=== PATIENT | male | born 1995 | race Asian ===

== ENCOUNTER → 2020-07-20 | Outpatient (CLI) | payer OTHER ==
[2020-07-20 20:47] LABS: HEPATITIS C ANTIBODY C Non-Reactive (Non-Reactive)
== END ==
LOC: RAD 10:03
PROVIDERS: ATTEND Internal Medicine Nephrology
DX: R80.9 Proteinuria, unspecified (principal)
CPT/HCPCS: 36415; 80074; 82232; 82595; 84155; 84165; 84166; 86335

== ENCOUNTER → 2020-09-19 | Outpatient (CLI) | payer OTHER ==
[2020-09-19 17:53] LABS: ALBUMIN 2.8 GM/DL (3.2-4.5)
[2020-09-19 17:54] LABS: CHLORIDE 105 MMOL/L (98-107); POTASSIUM 4.6 MMOL/L (3.6-5.0); SODIUM 136 MMOL/L (135-145)
[2020-09-19 17:55] LABS: CALCIUM 8.5 MG/DL (8.5-10.1)
[2020-09-19 17:56] LABS: GLUCOSE 92 MG/DL (70-105)
[2020-09-19 17:57] LABS: CARBON DIOXIDE 24 MMOL/L (21-32)
[2020-09-19 17:59] LABS: CREATININE SERUM 1.34 MG/DL (0.60-1.30); GFR ESTIMATED > 60; PHOSPHORUS 4.4 MG/DL (2.3-4.7)
[2020-09-19 18:01] LABS: BUN/CREATININE RATIO 22
== END ==
LOC: LAB 17:23
PROVIDERS: ATTEND Internal Medicine Nephrology
DX: N18.2 Chronic kidney disease, stage 2 (mild) (principal); R80.8 Other proteinuria
CPT/HCPCS: 36415; 80069; 82570; 84156

== ENCOUNTER → 2020-09-27 | Outpatient (CLI) | payer OTHER ==
[2020-09-27 15:03] LABS: BILIRUBIN,URINE NEGATIVE (NEGATIVE); CLARITY,URINE CLEAR; COLOR,URINE YELLOW; GLUCOSE, URINE (UA) NEGATIVE (NEGATIVE); KETONES,URINE NEGATIVE (NEGATIVE); LEUKOCYTE ESTERASE ,URINE NEGATIVE (NEGATIVE); NITRITE,URINE NEGATIVE (NEGATIVE); PH,URINE 5.5 (5-9); PROTEIN,URINE 2+ (NEGATIVE)
[2020-09-27 15:14] LABS: BACTERIA,URINE NEGATIVE /HPF; SQUAMOUS EPITHELIAL CELL,UR RARE /HPF
[2020-09-27 15:15] LABS: ALBUMIN 2.9 GM/DL (3.2-4.5); CHLORIDE 109 MMOL/L (98-107); POTASSIUM 4.6 MMOL/L (3.6-5.0); SODIUM 140 MMOL/L (135-145)
[2020-09-27 15:16] LABS: CALCIUM 8.5 MG/DL (8.5-10.1)
[2020-09-27 15:17] LABS: GLUCOSE 115 MG/DL (70-105)
[2020-09-27 15:19] LABS: CARBON DIOXIDE 23 MMOL/L (21-32)
[2020-09-27 15:21] LABS: CREATININE SERUM 1.02 MG/DL (0.60-1.30); GFR ESTIMATED > 60
[2020-09-27 15:22] LABS: BUN/CREATININE RATIO 20
== END ==
LOC: LAB 14:38
PROVIDERS: ATTEND Internal Medicine Nephrology
DX: I12.9 Hypertensive chronic kidney disease with stage 1 through stage 4 chronic kidney disease, or unspecified chronic kidney disease (principal); N18.2 Chronic kidney disease, stage 2 (mild); N05.0 Unspecified nephritic syndrome with minor glomerular abnormality; R80.8 Other proteinuria
CPT/HCPCS: 36415; 80069; 81000; 82570; 83970; 84156

== ENCOUNTER 2020-10-16 14:32 | Outpatient (RCR) | payer OTHER ==
[2020-10-16 15:52] LABS: BUN/CREATININE RATIO 12; CALCIUM 9.9 MG/DL (8.5-10.1); CARBON DIOXIDE 25 MMOL/L (21-32); CHLORIDE 107 MMOL/L (98-107); CREATININE SERUM 1.01 MG/DL (0.60-1.30); GFR ESTIMATED > 60; GLUCOSE 107 MG/DL (70-105); PHOSPHORUS 3.4 MG/DL (2.3-4.7); POTASSIUM 5.1 MMOL/L (3.6-5.0); SODIUM 139 MMOL/L (135-145)
== END 2021-01-14 | disposition home or self-care (01) ==
LOC: EDSTATUS 14:32 → LAB 14:32
PROVIDERS: ATTEND Internal Medicine Nephrology
DX: N18.2 Chronic kidney disease, stage 2 (mild) (principal); R80.8 Other proteinuria
CPT/HCPCS: 36415; 80069

== ENCOUNTER → 2020-10-29 | Outpatient (CLI) | payer OTHER ==
[2020-10-29 13:26] LABS: BILIRUBIN,URINE NEGATIVE (NEGATIVE); CLARITY,URINE CLEAR; COLOR,URINE YELLOW; GLUCOSE, URINE (UA) NEGATIVE (NEGATIVE); KETONES,URINE NEGATIVE (NEGATIVE); LEUKOCYTE ESTERASE ,URINE NEGATIVE (NEGATIVE); NITRITE,URINE NEGATIVE (NEGATIVE); PROTEIN,URINE NEGATIVE (NEGATIVE)
[2020-10-29 13:36] LABS: BACTERIA,URINE NEGATIVE /HPF
== END ==
LOC: LAB 12:42
PROVIDERS: ATTEND Internal Medicine Nephrology
DX: I10 Essential (primary) hypertension (principal); N18.2 Chronic kidney disease, stage 2 (mild); N05.0 Unspecified nephritic syndrome with minor glomerular abnormality; R80.8 Other proteinuria
CPT/HCPCS: 81000

== ENCOUNTER → 2020-12-11 | Outpatient (CLI) | payer OTHER ==
[2020-12-11 13:20] LABS: ALBUMIN 3.6 GM/DL (3.2-4.5); CALCIUM 9.6 MG/DL (8.5-10.1); CREATININE SERUM 1.05 MG/DL (0.60-1.30); PHOSPHORUS 3.6 MG/DL (2.3-4.7); POTASSIUM 4.4 MMOL/L (3.6-5.0)
== END ==
LOC: LAB 12:33
PROVIDERS: ATTEND Internal Medicine Nephrology
DX: N18.2 Chronic kidney disease, stage 2 (mild) (principal)
CPT/HCPCS: 36415; 80069; 82570; 84156